=== PATIENT | female | born 1960 | race African-American/Black ===

== ENCOUNTER 2016-11-26 08:38 | Emergency (ER) | payer OTHER ==
[~2016-11-26] VITALS: Ht 154.9 cm; Wt 66.0 kg
[~2016-11-26 08:38] MED LIST: DUONI NEB
[2016-11-26 08:39] VITALS: BP 143/96; PULSE 79; RESP 18; TEMP 98.4; O2SAT 98
--- NOTE | 2016-11-26 08:54 | PD ---
HPI Chief Complaint: Pain: Acute or Chronic Time Seen by Provider: 08:54 Travel History International Travel<30 days: No Contact w/Intl Traveler<30days: No Traveled to known affect area: No History of Present Illness HPI 56-year-old Afro-[place]ong[place]ian female presents the emergency department with ongoing intermittent headache, mild neck pain, and chronic lower back pain. States a history of being hit in the back of the head with a pipe that rolled off the roof while they were working on approximately one month ago. Patient states she had no loss of consciousness but did have a small area with bleeding. This is now improved but her doctor felt that she may need a CT scan. She was seen by her doctor last week and given Celebrex and Lortab. She continues to have low-grade intermittent headaches. She denies any neurological symptoms such as dizziness, nausea, changes in vision, or other symptoms. She has no known drug allergies. PFSH Past Medical History Hx Anticoagulant Therapy: Yes (ASA 81 MG DAILY) Asthma: Yes Diminished Hearing: No Respiratory: Yes (ASTHMA) ?: Not Menopausal: Yes : 7 Para: 7 Tubal Ligation: Yes Past Surgical History Section: Yes (x 1) Social History Alcohol Use: Yes (rare) Tobacco Use: No Substance Use: No Allergies-Medications (Allergen,Severity, Reaction): Coded Allergies: No Known Allergies (Verified , 07/30/15) Reported Meds & Prescriptions Reported Meds & Active Scripts Active Review of Systems Except as stated in HPI: all other systems reviewed are Neg General / Constitutional: No: Fever Eyes: No: Visual changes HENT: Positive: Headaches, No: Vertigo, Lightheadedness Cardiovascular: No: Chest Pain or Discomfort Respiratory: No: Shortness of Breath Gastrointestinal: No: Abdominal Pain Genitourinary: No: Dysuria Musculoskeletal: Positive: Myalgias, Arthralgias, Pain (chronic back pain.) Skin: No Rash Neurologic: No: Weakness Psychiatric: No: Depression Endocrine: No: Polydipsia Hematologic/Lymphatic: No: Easy Bruising Physical Exam Narrative GENERAL: Patient appears in no acute distress. SKIN: Warm and dry. Normal color. Normal turgor. No signs of trauma. HEAD: Atraumatic. Normocephalic. EYES: Pupils equal and round. No scleral icterus. No injection or drainage. No nystagmus. ENT: No nasal bleeding or discharge. Mucous membranes pink and moist. Pharynx is clear. Airway is patent. NECK: Trachea midline. No bony tenderness or step-off. Range of motion is supple. CARDIOVASCULAR: Regular rate and rhythm. RESPIRATORY: No accessory muscle use. Clear to auscultation. Breath sounds equal bilaterally. GASTROINTESTINAL: Abdomen soft, non-tender, nondistended. Hepatic and splenic margins not palpable. MUSCULOSKELETAL: Extremities without clubbing, cyanosis, or edema. No obvious deformities. Upper and lower extremity exam is unremarkable. Patient has mild soft tissue tenderness in the lumbar region more on the left than the right as well as soft tissue tenderness in the right upper trapezius and subscapularis. No decreased range of motion is noted. NEUROLOGICAL: Awake and alert. No obvious cranial nerve deficits. Motor grossly within normal limits. Five out of 5 muscle strength in the arms and legs. Normal speech. PSYCHIATRIC: Appropriate mood and affect; insight and judgment normal. Data Data Last Documented VS Vital Signs Date Time Temp Pulse Resp B/P Pulse Ox O2 Delivery O2 Flow Rate FiO2 11/26/16 08:39 98.4 79 18 143/[address] Brain W/O Iv Contrast(Rout) (11/26/16 08:58) MDM Medical Decision Making Medical Screen Exam Complete: Yes Emergency Medical Condition: Yes Differential Diagnosis Recurrent headache. History of head injury. Possible intracranial bleed. Narrative Course Patient is felt to be medically stable at time of exam. CT of the brain is ordered. CT is read as negative per radiologist. Patient is to continue the Lortab and Celebrex as previously prescribed. Patient is given a prescription for Flexeril 10 mg up to 3 times daily for muscle spasm. #15. Patient should follow-up with her primary care physician as needed. Diagnosis Primary Impression: Headache Qualified Code: R51 - Nonintractable episodic headache, unspecified headache type Additional Impression: Back pain Qualified Code: M54.5 - Chronic left-sided low back pain without sciatica Referrals: Primary Care Physician Patient Instructions: Acute Headache (ED), General Instructions, Lower Back Exercises (ED) Additional Instructions: CT is read as negative per radiologist. Patient is to continue the Lortab and Celebrex as previously prescribed. Patient is given a prescription for Flexeril 10 mg up to 3 times daily for muscle spasm. #15. Patient should follow-up with her primary care physician as needed. Med/Other Pt SpecificInfo: Prescription(s) given Scripts Cyclobenzaprine (Flexeril)10 Mg Tab10 Mg PO TID #15 TAB Prov:Moises Montes MD 11/26/16 Disposition: 01 DISCHARGE HOME Condition: Stable Rishi Mcfarland Nov 26, 2016 08:54
--- NOTE | 2016-11-26 10:06 | RADRPT ---
EXAM DATE/TIME: 11/26/2016 09:59 [facility] COMPARISON: No previous studies available for comparison. INDICATIONS : Cephalgia on and off for one month. RADIATION DOSE: 30.95 CTDIvol (mGy) MEDICAL HISTORY : None SURGICAL HISTORY : None. ENCOUNTER: Initial ACUITY: 1 day PAIN SCALE: 0/10 LOCATION: Bilateral cranial TECHNIQUE: Multiple contiguous axial images were obtained of the head. Using automated exposure control and adj ustment of the mA and/or kV according to patient size, radiation dose was kept as low as reasonably a chievable to obtain optimal diagnostic quality images. DICOM format image data is available electro nically for review and comparison. FINDINGS: CEREBRUM: The ventricles are normal for age. No evidence of midline shift, mass lesion, hemorrhage or acute in farction. No extra-axial fluid collections are seen. POSTERIOR FOSSA: The cerebellum and brainstem are intact. The 4th ventricle is midline. The cerebellopontine angle i s unremarkable. EXTRACRANIAL: The visualized portion of the orbits is intact. SKULL: The calvaria is intact. No evidence of skull fracture. CONCLUSION: Normal examination. Stanley Oviedo MD on November 26, 2016 at 10:04 Board Certified Radiologist. This report was verified electronically.
[2016-11-26] MEDS ORDERED: CYCL1TAB29 PO (10:08)
== END 2016-11-26 10:18 | disposition home or self-care (01) ==
LOC: NEPK 08:38
DX: R51 Headache (principal); M54.5 Low back pain; G89.29 Other chronic pain
CPT/HCPCS: 70450; 99284